=== PATIENT | male | born 1950 | race Caucasian/White ===

== ENCOUNTER 2021-03-11 02:15 | Day surgery (SDC) | payer MEDICARE, SELFPAY ==
[2021-02-28 13:17] VITALS: BMI 25.2
[2021-03-11 10:15] VITALS: BP 113/71; PULSE 71; RESP 20; TEMP 36.6; O2SAT 99; BMI 25.7
[2021-03-11] MEDS: LACTATED RINGERS 1,000 ML 150 ML IV CONT (10:23)
--- NOTE | 2021-03-11 10:28 | P.PNAN_ITS ---
Anes - Initial Pre Proc Eval Procedure: Operation Date: 03/11/21 11:00 Proposed Procedures p Screening Colonoscopy - Wisam Hernandez MD Date/Time: 03/11/21 10:28 Surgeon: Wisam Hernandez MD Pre Op Diagnosis: family hx of colon ca Patient Data Age: 70 Gender: M Height: 1.88 m Weight: 90.9 kg Last Vital Signs Temp 36.6 C 03/11/21 10:15 Pulse 71 03/11/21 10:15 Resp 20 03/11/21 10:15 BP 113/71 03/11/21 10:15 Pulse Ox 99 03/11/21 10:15 Allergies Allergy/AdvReac Type Severity Reaction Status Date / Time Penicillins Allergy Unknown Hives Verified 03/11/21 10:14 Home Medications Medication Instructions Recorded Confirmed Type tamsulosin 0.4 mg PO BID 02/28/21 02/28/21 History Patient hx anesthesia problems: none Family hx anesthesia problems: none Results Review: All pre-operative results and documents have been reviewed as part of the pre-operative evaluation. [facility], [facility] Surgical History Surgical History (Updated 03/11/21 @ 10:28 by Shola Pena MD) H/O colonoscopy Social History Social History Smoking status: Never smoker Alcohol use details: rarely Substance use: never Substance use type: does not use Living arrangements: alone Spiritual care concerns: No Anes - Eval Final PreProcedure Day of Procedure 03/11/21 10:28 Patient weight: normal Heart: regular rate and rhythm Lungs: clear to auscultation Airway: Mallampati scale class II Neurological: alert and oriented Last oral intake: >/= 8 hours ASA classification: I Emergent: no Anesthetic plan: proceed Anesthesia type and monitoring: general GIVS and standard monitoring Results Review: All pre-operative results and documents have been reviewed as part of the pre-operative evaluation. Informed Consent: The patient's anesthetic plan and its attendant risks and benefits were discussed with the patient/family/POA. Questions were solicited and answers provided to the satisfaction of the patient/family/POA.
--- NOTE | 2021-03-11 10:41 | P.CONGI_ITS ---
Assessment and Plan Assessment and plan (1) Family history of colon cancer in father: Code(s): Z80.0 - Family history of malignant neoplasm of digestive organs Status: Acute Assessment and Plan: Patient has a family history colon cancer in father and also in multiple family members including grandparent several uncles. Plan is for surveillance colonoscopy now and at 5 year intervals in the future. GI Consult Note Consult date/time: 03/11/21 10:41 HPI: Efrain Haider is a 70 year old male Presents for screening colonoscopy. Patient's current weight appetite bowel movements are normal family history is significant is father had colon cancer. Additionally grandmother several uncles have had colon cancer as well. Patient reports that his own weight appetite and bowel movements are normal. Patient denies abdominal pain. He has had no bleeding. [facility], [facility] Surgical History Surgical History (Updated 03/11/21 @ 10:28 by Shola Pena MD) H/O colonoscopy Social History Social History Smoking status: Never smoker Alcohol use details: rarely Substance use: never Substance use type: does not use Living arrangements: alone Spiritual care concerns: No Meds Home Medications and Allergies Home Medications Medication Instructions Recorded Confirmed Type tamsulosin 0.4 mg PO BID 02/28/21 02/28/21 History Allergies Allergy/AdvReac Type Severity Reaction Status Date / Time Penicillins Allergy Unknown Hives Verified 03/11/21 10:14 Vital Signs Vital Signs - 24 hr 03/11/21 10:15 Temperature 97.9 F Pulse Rate 71 Respiratory Rate 20 Blood Pressure 113/71 Pulse Oximetry 99 Exam Narrative: Physical exam reveals patient be alert. Vital signs stable. HEENT exam is unremarkable. Patient is anicteric. Lungs are clear to auscultation and percussion. Heart is without murmur or extra sounds. Abdominal exam bowel sounds are present soft nontender with no organomegaly. Digital external rectal exam is normal.
[2021-03-11 11:29] VITALS: BP 101/58; PULSE 63; RESP 15; O2SAT 98
[2021-03-11 11:39] VITALS: BP 102/63; PULSE 63; RESP 20; O2SAT 99
[2021-03-11 11:49] VITALS: BP 111/77; PULSE 63; RESP 20; O2SAT 99
== END 2021-03-11 12:40 | disposition home or self-care (01) ==
PROVIDERS: PCP Family Medicine Adolescent Medicine; Visit Provider Internal Medicine Gastroenterology
PROC: 0DJD8ZZ Inspection of Lower Intestinal Tract, Via Natural or Artificial Opening Endoscopic (ICD-10-PCS; CPT 45378; principal; 2021-03-11 11:00)
DX: Z12.11 Encounter for screening for malignant neoplasm of colon (principal); D12.2 Benign neoplasm of ascending colon; D12.5 Benign neoplasm of sigmoid colon; K57.30 Diverticulosis of large intestine without perforation or abscess without bleeding; K64.8 Other hemorrhoids; Z80.0 Family history of malignant neoplasm of digestive organs
CPT/HCPCS: 45385; 88305; J2704; J7120

== ENCOUNTER → 2021-04-08 11:02 | Outpatient (CLI) | payer MEDICARE, SELFPAY ==
--- NOTE | ~2021-04-08 | XR_ITS ---
EXAMINATION: XR shoulder LT min 2V DATE: 04/08/2021 11:48 INDICATION: Left acromioclavicular joint injury and pain. TECHNIQUE: 4 views of left shoulder were obtained. COMPARISON: None. FINDINGS: Bone alignment is normal. No fracture. There is mild osteoarthritis of glenohumeral joint a nd severe osteoarthritis of acromioclavicular joint. There are suture anchors in the scapula. IMPRESSION: 1. Polyarticular osteoarthritis. Reviewed, dictated and finalized at location B. [employer]
--- NOTE | ~2021-04-08 | XR_ITS ---
EXAMINATION: XR shoulder RT min 2V DATE: 04/08/2021 11:48 INDICATION: Pain post fall with injury to the acromioclavicular joint. TECHNIQUE: AP internally and externally rotated, AP oblique externally rotated and axillary views of the right shoulder were obtained. COMPARISON: None FINDINGS: Normal alignment. No fracture.Mild osteoarthritis with mild nonuniform joint space narrowing at the right glenohumeral joint. Moderate acromioclavicular osteoarthritis with small inferiorly directed os teophytes. Visualized portions of the lungs are clear. Soft tissues are unremarkable. IMPRESSION: Mild right glenohumeral and moderate acromioclavicular osteoarthritis. Reviewed, dictated and finalized at location A. SPECIALIST
== END ==
PROVIDERS: Visit Provider Family Medicine Adolescent Medicine
DX: S49.92XA Unspecified injury of left shoulder and upper arm, initial encounter (principal); M19.012 Primary osteoarthritis, left shoulder; M19.011 Primary osteoarthritis, right shoulder
CPT/HCPCS: 73030

== ENCOUNTER 2022-09-04 08:16 | Day surgery (SDC) | payer MEDICARE, SELFPAY ==
[2022-08-28 07:15] VITALS: BMI 26.3
[2022-08-28 13:20] VITALS: BMI 25.6
--- NOTE | 2022-09-03 11:55 | WPDANESEPPF ---
Anes - Initial Pre Proc Eval Procedure: Operation Date: 09/04/22 10:00 Proposed Procedures p Esophagogastroduodenoscopy - Wisam Hernandez MD <Jose Park MD - Last Filed: 09/03/22 11:57> Date/Time: 09/03/22 11:55 <Jose Park MD - Last Filed: 09/03/22 11:57> Surgeon: Wisam Hernandez MD <Jose Park MD - Last Filed: 09/03/22 11:57> Pre Op Diagnosis: Epigastric Pain <Jose Park MD - Last Filed: 09/03/22 11:57> Patient Data Age: 71 Gender: M Height: 1.88 m Weight: 90.5 kg <Jose Park MD - Last Filed: 09/03/22 11:57> Allergies Allergy/AdvReac Type Severity Reaction Status Date / Time Penicillins Allergy Unknown Anaphylaxis Verified 09/04/22 08:50 <Jose Park MD - Last Filed: 09/03/22 11:57> Home Medications Medication Instructions Recorded Confirmed Type ibuprofen 200 mg tablet (IBU-200) 200 mg PO Q6H PRN Pain, Mild 04/03/21 09/04/22 History fluticasone propionate 50 2 spray intranasal DAILY #16 grams 11/04/21 09/04/22 Rx mcg/actuation nasal spray,suspension montelukast 10 mg tablet See Rx Instructions .Route 12/02/21 09/04/22 Rx .COMPLEX #60 tabs tamsulosin 0.4 mg capsule See Rx Instructions .Route 12/02/21 09/04/22 Rx .COMPLEX #180 caps finasteride 5 mg tablet 5 mg PO DAILY 05/26/22 09/04/22 History <Jose Park MD - Last Filed: 09/03/22 11:57> Patient hx anesthesia problems: none <Shola Pena MD - Last Filed: 09/04/22 09:09> Family hx anesthesia problems: none <Shola Pena MD - Last Filed: 09/04/22 09:09> Results Review: All pre-operative results and documents have been reviewed as part of the pre-operative evaluation. <Jose Park MD - Last Filed: 09/03/22 11:57> [facility] Past Medical History Medical History: Medical History Abnormal colonoscopy 03/19 Tubular adenoma Benign prostatic hyperplasia with lower urinary tract symptoms Chronic GERD Tear of cartilage of left knee <Jose Park MD - Last Filed: 09/03/22 11:57> Surgical History Surgical History: Surgical History Hx of tonsillectomy <Jose Park MD - Last Filed: 09/03/22 11:57> Family History Family History: Family History Father , BPH, Prostate Ca, Hodgkins Lymphoma, Malignant neoplasm of prostate Hodgkins disease Carcinoma of colon Mother Stented coronary artery Sibling Thyroid disease Sibling Lymphoma <Jose Park MD - Last Filed: 09/03/22 11:57> Social History Social History: Social History Smoking status: Never smoker Second hand tobacco smoke exposure: No Alcohol intake: current Alcohol use details: rarely Substance use: never Substance use type: does not use Living arrangements: alone Occupation/Education: retired Gender identity (if verbalized by the patient): Male Sexual Orientation (if Verbalized by the Patient): Straight or Heterosexual Spiritual care concerns: No Agree to blood products: Yes <Jose Park MD - Last Filed: 09/03/22 11:57> Anes - Eval Final PreProcedure Day of Procedure 09/03/22 11:55 <Jose Park MD - Last Filed: 09/03/22 11:57> Patient weight: normal <Jose Park MD - Last Filed: 09/03/22 11:57> Heart: regular rate and rhythm <Jose Park MD - Last Filed: 09/03/22 11:57> Lungs: clear to auscultation <Jose Park MD - Last Filed: 09/03/22 11:57> Airway: Mallampati scale class II <Jose Park MD - Last Filed: 09/03/22 11:57> Neurological: alert and oriented <Jose Park MD - Last Filed: 09/03/22 11:57> Last oral intake: >/= 8 hours <Jose Park MD - Last Filed
[2022-09-04 08:55] VITALS: BP 118/83; PULSE 62; RESP 18; TEMP 36.4; O2SAT 99
[2022-09-04] MEDS: LACTATED RINGERS 1,000 ML 150 ML IV CONT (09:01)
--- NOTE | 2022-09-04 09:17 | PM.HPGS ---
History of Present Illness History of Present Illness Consent: Risks, benefits, and alternatives have been discussed and questions answered. Patient agrees to proceed with procedure. Chief complaint: Epigastric Pain Narrative: Efarin Haider is a 71 year old male Presents for EGD. Patient complains of left upper quadrant pain. Appears to intensify after eating. Not particularly burning in nature. It is been rather persistent despite trying antacid therapy. Patient had a colonoscopy 2 years ago because of family history of colon cancer in father and sister. Colonoscopy did reveal a several benign polyps. Follow-up anticipated every 4-5 years. Patient presents today for EGD to evaluate left upper quadrant pain. Review of Systems Review of Systems: Review of systems noncontributory. [facility] Past Medical History Medical History Abnormal colonoscopy 03/19 Tubular adenoma Benign prostatic hyperplasia with lower urinary tract symptoms Chronic GERD Tear of cartilage of left knee Surgical History Surgical History Hx of tonsillectomy Family History Family History Father , BPH, Prostate Ca, Hodgkins Lymphoma, Malignant neoplasm of prostate Hodgkins disease Carcinoma of colon Mother Stented coronary artery Sibling Thyroid disease Sibling Lymphoma Social History Social History Smoking status: Never smoker Second hand tobacco smoke exposure: No Alcohol intake: current Alcohol use details: rarely Substance use: never Substance use type: does not use Living arrangements: alone Occupation/Education: retired Gender identity (if verbalized by the patient): Male Sexual Orientation (if Verbalized by the Patient): Straight or Heterosexual Spiritual care concerns: No Agree to blood products: Yes Meds Home Medications and Allergies Home Medications Medication Instructions Recorded Confirmed Type ibuprofen 200 mg tablet (IBU-200) 200 mg PO Q6H PRN Pain, Mild 04/03/21 09/04/22 History fluticasone propionate 50 2 spray intranasal DAILY #16 grams 11/04/21 09/04/22 Rx mcg/actuation nasal spray,suspension montelukast 10 mg tablet See Rx Instructions .Route 12/02/21 09/04/22 Rx .COMPLEX #60 tabs tamsulosin 0.4 mg capsule See Rx Instructions .Route 12/02/21 09/04/22 Rx .COMPLEX #180 caps finasteride 5 mg tablet 5 mg PO DAILY 05/26/22 09/04/22 History Allergies Allergy/AdvReac Type Severity Reaction Status Date / Time Penicillins Allergy Unknown Anaphylaxis Verified 09/04/22 08:50 Vital Signs Vital Signs - 24 hr 09/04/22 08:55 Temperature 97.5 F L Pulse Rate 62 Respiratory Rate 18 Blood Pressure 118/83 Pulse Oximetry 99 Oxygen Delivery Room Air Exam Narrative: Physical exam reveals patient to be alert. Vital signs stable. HEENT exam is unremarkable. Lungs are clear to auscultation and percussion. Heart is without murmur or extra sounds. Abdomen bowel sounds are present soft nontender with no organomegaly. Digital external rectal exam is normal. Assessment and Plan Assessment and plan (1) LUQ abdominal pain: Code(s): R10.12 - Left upper quadrant pain Status: Acute Assessment and Plan: Persistent left upper quadrant abdominal pain despite treatment with acid reducing therapy. Plan for EGD to evaluate today. Further recommendations may be given after endoscopy. (2) Family hx of colon cancer: Code(s): Z80.0 - Family history of malignant neoplasm of digestive organs Status: Acute Assessment and Plan: Patient's father and sister have had colon cancer he himself has had colon polyps. Follow-up colonoscopy advised at least every 5 years. (3) History of colon polyp
[2022-09-04 10:14] VITALS: BP 123/74; PULSE 58; RESP 16; O2SAT 98
[2022-09-04 10:24] VITALS: BP 121/74; PULSE 50; RESP 18; O2SAT 99
--- NOTE | 2022-09-04 10:32 | WPDANESPN ---
Anes - Prog Note Post-Op Date/Time: 09/04/22 10:32 Cardiovascular status: normal Respiratory status: normal Airway patency: baseline Mental status: baseline Post-Op hydration status: normal Vital Signs: Last Vital Signs Temp 36.4 C L 09/04/22 08:55 Pulse 50 L 09/04/22 10:24 Resp 18 09/04/22 10:24 BP 121/74 09/04/22 10:24 Pulse Ox 99 09/04/22 10:24 O2 Del Method Room Air 09/04/22 10:24 Pain Score (VAS): 0/10 Patient Feedback: Patient satisfied with anesthetic care.
--- NOTE | 2022-09-04 10:32 | SUR.PHASEII ---
PT AWAKE AND ALERT. DENIES PAIN. STATES HE DOES NOT WANT SOMETHING TO DRINK AT THIS TIME
[2022-09-04 10:34] VITALS: BP 113/71; PULSE 50; RESP 18; O2SAT 99
== END 2022-09-04 10:51 | disposition home or self-care (01) ==
PROVIDERS: PCP Family Medicine Adolescent Medicine; Visit Provider Internal Medicine Gastroenterology
PROC: 0DJ08ZZ Inspection of Upper Intestinal Tract, Via Natural or Artificial Opening Endoscopic (ICD-10-PCS; CPT 43235; principal; 2022-09-04 10:00)
DX: R10.12 Left upper quadrant pain (principal)
CPT/HCPCS: 43239